=== PATIENT | male | born 1975 | race African-American/Black ===

== ENCOUNTER 2017-01-22 16:57 | Emergency (ER) | payer OTHER | END 2017-01-22 21:30 | disposition home or self-care (01) | LOC: FER 16:57 | DX: M54.31 Sciatica, right side (principal) | CPT/HCPCS: J1100 ==

== ENCOUNTER 2021-01-24 02:08 | Emergency (ER) | payer OTHER ==
[~2021-01-24 02:08] MED LIST: FLEXERIL10 MG PO; MEDROL 4MG DOSEP4 MG PO; VOLTAREN **OUT75 MG PO
[2021-01-24] MEDS ORDERED: PERCOCET 5-3251 EACH PO (03:47)
[2021-01-24] MEDS ORDERED: IBUPROFEN800 MG PO (03:47)
[2021-01-24] MEDS ORDERED: CEPHALEXIN500 M1 PO (03:47)
== END 2021-01-24 04:05 | disposition home or self-care (01) ==
LOC: FER 02:08
DX: S61.213A Laceration without foreign body of left middle finger without damage to nail, initial encounter (principal); Z23 Encounter for immunization; I10 Essential (primary) hypertension; F17.210 Nicotine dependence, cigarettes, uncomplicated; Z91.040 Latex allergy status; W54.0XXA Bitten by dog, initial encounter; Y92.009 Unspecified place in unspecified non-institutional (private) residence as the place of occurrence of the external cause
CPT/HCPCS: 73140; 90471; 90715

== ENCOUNTER 2021-08-13 11:49 | Emergency (ER) | payer OTHER ==
[~2021-08-13 11:49] MED LIST changes: +CEPHALEXIN500 M1 PO; +IBUPROFEN800 MG PO; +PERCOCET 5-3251 EACH PO; +TIZANIDINE HCL4 MG PO
[2021-08-13 12:23] LABS: BASOPHIL 0.7 % (0-2); EOSINOPHIL 2.5 % (0-5); HCT 43.8 % (42.0-52.0); HGB 14.3 g/dl (13.2-18.0); LYMPHOCYTE 31.1 % (15-48); MCH 29.2 pg (25.0-31.0); MCHC 32.6 g/dL (32.0-36.0); MCV 89.6 fL (78.0-100.0); MONOCYTE 9.4 % (0-12); MPV 9.7 fL (6.0-9.5); NEUTROPHIL 55.9 % (41-80); NRBC 0; PLT 268 K/uL (150-400); RBC 4.89 M/uL (4.70-6.00); RDW 12.8 % (11.5-14.0); WBC 8.1 K/uL (4.0-10.5)
[2021-08-13 12:32] LABS: INR 1.05 (0.9-1.2); PROTHROMBIN TIME 13.1 SECONDS (11.8-13.4)
[2021-08-13 12:33] LABS: PTT 25.8 SECONDS (24.4-34.7)
[2021-08-13 12:51] LABS: ALBUMIN 4.2 g/dL (3.4-5.0); BILIRUBIN - TOTAL 0.7 mg/dL (0.2-1.0); BUN/CREAT RATIO (CALC) 13.1 RATIO; CREATININE 0.84 mg/dL (0.67-1.17); GLOBULIN (CALCULATION) 3.2 g/dL; MAGNESIUM 2.5 mg/dL (1.8-2.4); POTASSIUM 3.7 mmol/L (3.5-5.1); TOTAL PROTEIN 7.4 g/dL (6.4-8.2)
[2021-08-13 14:13] LABS: BILIRUBIN NEGATIVE (NEGATIVE); BLOOD NEGATIVE Ery/uL (NEGATIVE); CLARITY CLEAR (CLEAR); COLOR YELLOW (YELLOW); GLUCOSE (U) NORMAL (NORMAL); LEUKOCYTES NEGATIVE Leu/uL (NEGATIVE); NITRITE NEGATIVE (NEGATIVE); PROTEIN NEGATIVE (NEGATIVE); SPECIFIC GRAVITY 1.015 (1.001-1.030); UROBILINOGEN 0.2 mg/dL (0.2-1.0)
[2021-08-13 14:16] LABS: AMPHETAMINES NEGATIVE (NEGATIVE); BARBITURATES NEGATIVE (NEGATIVE); ECSTASY (MDMA) NEGATIVE (NEGATIVE); MARIJUANA (THC) POSITIVE (NEGATIVE); METHADONE NEGATIVE (NEGATIVE); OPIATES NEGATIVE (NEGATIVE); OXYCODONE NEGATIVE (NEGATIVE)
[2021-08-13] MEDS ORDERED: NAPROXEN500 MG PO (15:08)
== END 2021-08-13 16:30 | disposition home or self-care (01) ==
LOC: FER 11:49
PROVIDERS: Emergency Medicine
DX: S20.214A Contusion of middle front wall of thorax, initial encounter (principal); S00.83XA Contusion of other part of head, initial encounter; M54.2 Cervicalgia; I10 Essential (primary) hypertension; Z91.040 Latex allergy status; V49.50XA Passenger injured in collision with unspecified motor vehicles in traffic accident, initial encounter
CPT/HCPCS: 36415; 70450; 71260; 72125; 72131; 80053; 80305; 81003; 83605; 83735; 84145; 84484; 85025; 85610; 85730; 93005; G0480; J7030; Q9967

== ENCOUNTER 2022-04-18 17:44 | Emergency (ER) | payer OTHER ==
[~2022-04-18 17:44] MED LIST changes: +NAPROXEN500 MG PO
[2022-04-18] MEDS ORDERED: PREDNISONE 20MG20 MG PO (20:52)
== END 2022-04-18 21:48 | disposition home or self-care (01) ==
LOC: FER 17:44
DX: M54.50 Low back pain, unspecified (principal); G89.29 Other chronic pain; I10 Essential (primary) hypertension; J45.909 Unspecified asthma, uncomplicated; F17.210 Nicotine dependence, cigarettes, uncomplicated; Z91.040 Latex allergy status
CPT/HCPCS: 96372; J1100; J1885